=== PATIENT | male | born 1960 | race Caucasian/White ===

== ENCOUNTER 2017-11-07 10:17 | Day surgery (SDC) | payer OTHER ==
[~2017-11-07 10:17] MED LIST: Lactated Ringers 1,000 ML IV SCH
[2017-11-07] MEDS ORDERED: Propofol 200 MG/20 ML SDV ONE ×2 (10:55→12:18)
[2017-11-07] MEDS ORDERED: fentaNYL 100 MCG/2 ML SDV ONE ×2 (10:55→12:04)
[2017-11-07] MEDS ORDERED: Lidocaine 2% 5 ML SDV ONE (10:55)
[2017-11-07] MEDS ORDERED: Midazolam 1 MG/ML 2 ML SDV ONE (10:55)
--- NOTE | 2017-11-07 11:22 | PCM.PREANE ---
Preanesthetic Assessment - Anesthesia/Transfusion/Family Hx Anesthesia History: Prior Anesthesia Without Reaction Other Type of Anesthesia Reaction Comment: Denies any known problem in past Family History of Anesthesia Reaction: No Transfusion History: No Prior Transfusion(s) - Review of Systems General: No Symptoms Pulmonary: No Symptoms Cardiovascular: No Symptoms Gastrointestinal: No Symptoms Neurological: No Symptoms Other: Reports: None - Physical Assessment NPO Status Date: 11/06/17 O2 Sat by Pulse Oximetry: 95 Respiratory Rate: 16 Vital Signs: Last Vital Signs Temp 36.7 C 11/07/17 10:31 Pulse 64 11/07/17 10:31 Resp 16 11/07/17 10:31 BP 141/83 H 11/07/17 10:31 Pulse Ox 95 11/07/17 10:31 Height: 1.83 m Weight: 115.212 kg ASA Class: 2 Mental Status: Alert & Oriented x3 Airway Class: Mallampati = 1 Dentition: Reports: Normal Dentition ROM/Head Extension: Full Lungs: Clear to Auscultation, Normal Respiratory Effort Cardiovascular: Regular Rate, Regular Rhythm - Allergies Allergies/Adverse Reactions: Allergies Allergy/AdvReac Type Severity Reaction Status Date / Time soy Allergy Itching Verified 11/05/17 08:52 Promethazine with Codeine Allergy throat Uncoded 11/05/17 08:52 Swelling - Anesthesia Plan Pre-Op Medication Ordered: None (dx of RLS is inactive, hx of a fib sas a single episode in 1999, no recurrances, off anticoagulants, Hx of MYRA is inactive, does snore at night but last sleep study was negative per patient.) - Acknowledgements Anesthesia Type Planned: MAC Pt an Appropriate Candidate for the Planned Anesthesia: Yes Alternatives and Risks of Anesthesia Discussed w Pt/Guardian: Yes Pt/Guardian Understands and Agrees with Anesthesia Plan: Yes PreAnesthesia Questionnaire HEENT History: Reports: None Cardiovascular History: Reports: High Cholesterol, Hypertension Other Cardiovascular History: angiogram in the past, "small blockage" 2006 "to small to stent" Respiratory History: Reports: None Gastrointestinal History: Reports: Colon Polyp, GERD Genitourinary History: Reports: BPH Musculoskeletal History: Reports: Back Pain, Chronic Other Musculoskeletal History: hx: Fracturing hand Neurological History: Reports: Other (See Below) Other Neuro History: Restless legs Psychiatric History: Reports: Anxiety Endocrine/Metabolic History: Reports: Obesity/BMI 30+ Dermatologic History: Reports: None - Past Surgical History Head Surgeries/Procedures: Reports: None GI Surgical History: Reports: Cholecystectomy, Colonoscopy, EGD Other GI Surgeries/Procedures: Lap Britt, EGD & Colonoscopies x 2 in past Neurological Surgical History: Reports: Spinal Fusion Other Neurological Surgeries/Procedures: Lumbar fusion with 2 titanium clips Musculoskeletal Surgical History: Reports: Other (See Below) Other Musculoskeletal Surgeries/Procedures:: Low back surgery Lumbar fusion with 2 titanium clips - SUBSTANCE USE Smoking Status *Q: Never Smoker Second Hand Smoke Exposure: No Days Per Week of Alcohol Use: 0 Recreational Drug Use History: No - HOME MEDS Home Medications: Home Meds Aspirin [Arnaldo Chewable Aspirin] 81 mg PO DAILY 12/14/14 [History] Lovastatin 20 mg PO DAILY 12/14/14 [History] Sertraline HCl [Zoloft] 150 mg PO DAILY 12/14/14 [History] oxyCODONE HCl/Acetaminophen [Percocet 5-325 mg Tablet] 1 tab PO ASDIRECTED PRN 12/14/14 [History] Atenolol 25 mg PO BID 06/08/15 [History] Esomeprazole [NexIUM] 1 tab PO ASDIRECTED PRN 11/05/17 [History] Lisinopril 10 mg PO DAILY 11/05/17 [History] - CURRENT (IN HOUSE) MEDS Current Meds: Current Medications Lactated Ringer's (Ringers, Lactated) 1,000 mls @ 125 mls/hr IV ASDIRECTED SHANNON Last Admin: 11/07/17 10:32 Dose: 125 mls/hr Discontinued Medications Fentanyl (Sublimaze) Confirm Administered Dose 100 mcg .ROUTE .STK-MED ONE Stop: 11/07/17 10:56 Lidocaine (Xylocaine-Mpf 2%) Confirm Administered Dose 5 ml .ROUTE .STK-MED ONE Stop: 11/07/17 10:56 Midazolam HCl (Versed 1 Mg/Ml) Confirm Administered Dose 2 mg .ROUTE .STK-MED ONE Stop: 11/07/17 10:56 Propofol (Diprivan 20 Ml) Confirm Administered Dose 400 mg .ROUTE .STK-MED ONE Stop: 11/07/17 10:56
[2017-11-07] MEDS ORDERED: Ondansetron 4 MG Tab.DIS PO PRN (12:32)
--- NOTE | 2017-11-07 12:36 | PCM.OPNOTE ---
- General Post-Op/Procedure Note Date of Surgery/Procedure: 11/07/17 Operative Procedure(s): Esophagogastroduodenoscopy with biopsy. Colonoscopy. Pre Op Diagnosis: Progressive heartburn. Right upper quadrant pain. Personal history of colon polyps. Post-Op Diagnosis: Mild to moderate gastritis and esophagitis. No evidence of colonic neoplasia. Anesthesia Technique: MAC (ASA II) Primary Surgeon: Lee Augustine Tipple Oiler: Joseph Rollins Condition: Good Free Text/Narrative:: DICTATION [id number] CPT CODE [id number]
[2017-11-07] MEDS ORDERED: Lactated Ringers 1,000 ML IV SCH (12:45)
--- NOTE | 2017-11-07 12:56 | PCM.POSTAN ---
POST ANESTHESIA ASSESSMENT - MENTAL STATUS Mental Status: Alert, Oriented - RESPIRATORY Respiratory Status: Respiratory Rate WNL, Airway Patent - CARDIOVASCULAR CV Status: Pulse Rate WNL, Blood Pressure Stable - GASTROINTESTINAL GI Status: No Symptoms - POST OP HYDRATION Hydration Status: Adequate & Stable
--- NOTE | 2017-11-07 12:57 | PCM48HPAN ---
Post Anesthesia Note - EVALUATION WITHIN 48HRS OF ANESTHETIC Vital Signs in Normal Range: Yes Patient Participated in Evaluation: Yes Respiratory Function Stable: Yes Airway Patent: Yes Cardiovascular Function Stable: Yes Hydration Status Stable: Yes Pain Control Satisfactory: Yes Nausea and Vomiting Control Satisfactory: Yes Mental Status Recovered: Yes Resp Rate: 1
[2017-11-07 13:18] VITALS: BP 142/77
--- NOTE | 2017-11-07 14:01 | OR ---
SURGEON: Lee Augustine M.D. DATE OF PROCEDURE: 11/07/2017 OPERATION PERFORMED: Esophagogastroduodenoscopy with biopsy. ENGINE ROOM HELPER: Dr. Rollins, PGY3 ANESTHESIA: MAC. ASA CLASSIFICATION: II. PREOPERATIVE DIAGNOSES: 1. Progressive heartburn. 2. Epigastric discomfort. POSTOPERATIVE DIAGNOSES: 1. Mild gastritis. 2. Esophagitis. DESCRIPTION OF PROCEDURE: The patient was taken to the endoscopy room and positioned on the endoscopy table in the left lateral decubitus position. Time-out was called for appropriate identification of the patient and procedure. Monitored anesthesia care was provided. The bite block was placed between the patient's teeth. The gastroscope was inserted through the bite block into the oropharynx and advanced without difficulty through the esophagus and stomach into the duodenum where examination was now carried out in a retrograde fashion. The duodenum showed mild inflammatory changes. No acute ulcerations were noted. The stomach does show [id number] gastritis. Antral biopsies were obtained to look for the presence of Helicobacter pylori. The gastroscope was then retroflexed to visualize the proximal stomach. No tumors or polyps were seen, and there were no acute ulcerations noted proximally. The scope was then withdrawn aspirating the stomach as the scope was withdrawn. Once we reached the GE junction, one could see changes worrisome for a Garrison esophagus or significant esophagitis. Separate biopsies of this area were obtained. The mid and proximal esophagus showed no acute ulcerations or erosions. The vocal cords were visualized as the scope was withdrawn and noted to move symmetrically. The patient tolerated this procedure well. Following colonoscopy, he was taken to recovery room in stable condition. LOBITO / FLOR /[id number]
--- NOTE | 2017-11-07 14:15 | OR ---
SURGEON: Lee Augustine M.D. DATE OF PROCEDURE: 11/07/2017 OPERATION PERFORMED: Colonoscopy. ANESTHESIA: MAC. ASA CLASSIFICATION: II. RN CONCURRENT REVIEW: Dr. Rollins, PGY3 PREOPERATIVE DIAGNOSIS: Personal history of colon polyps. POSTOPERATIVE DIAGNOSIS: No evidence of neoplasia. DESCRIPTION OF PROCEDURE: With the patient having completed esophagogastroduodenoscopy, he was now positioned and colonoscopy was begun. He was maintained in the left lateral decubitus position. The colonoscope was inserted into the rectum and advanced with minimal difficulty to the cecum where the colonoscope was retroflexed to visualize the ascending colon from below. The colonoscope was then straightened and slowly withdrawn. The cecum, ascending colon, hepatic flexure, transverse colon, splenic flexure, descending colon, sigmoid colon, and rectum were very well visualized. No tumors, polyps, diverticula, or angiodysplastic changes were noted anywhere throughout the lower gastrointestinal tract. Once the colonoscope was withdrawn to the rectum, it was retroflexed to visualize the anal orifice from above. No tumors, polyps, or acute hemorrhoidal changes were noted. The colonoscope was then straightened, the rectum aspirated, and the colonoscope removed. The patient tolerated the procedure well and was taken to recovery room in stable condition. LOBITO / FLOR /[id number]
== END 2017-11-07 13:34 | disposition home or self-care (01) ==
LOC: MW.SDS 10:17
PROVIDERS: ATTEND Surgery
DX: Z12.11 Encounter for screening for malignant neoplasm of colon (principal); K29.50 Unspecified chronic gastritis without bleeding; K20.9 Esophagitis, unspecified; F41.9 Anxiety disorder, unspecified; I25.10 Atherosclerotic heart disease of native coronary artery without angina pectoris; E78.5 Hyperlipidemia, unspecified; I10 Essential (primary) hypertension; E66.9 Obesity, unspecified; Z88.8 Allergy status to other drugs, medicaments and biological substances; Z91.018 Allergy to other foods; Z86.010 Personal history of colon polyps; Z68.30 Body mass index [BMI] 30.0-30.9, adult; Z79.82 Long term (current) use of aspirin; Z79.899 Other long term (current) drug therapy; Z72.0 Tobacco use
CPT/HCPCS: 43239; 45378; J2250; J3010; J7120; 00813; 88305; 88312; J2704

== ENCOUNTER 2018-01-13 11:07 | Day surgery (SDC) | payer OTHER ==
[~2018-01-13 11:07] MED LIST changes: +Betamethasone Acetate/Betamethasone Sod Phosphate 30 MG/5 ML MDV ONE; +Iopamidol 408 MG/ML 50 ML SDV ONE; -Lactated Ringers 1,000 ML IV SCH; +Lidocaine 2% 5 ML SDV ONE; +Ropivacaine 0.5% 5 MG/ML 30 ML SDV ONE
--- NOTE | 2018-01-13 16:50 | OR ---
SURGEON: Machelle Bernard D.O. DATE OF PROCEDURE: 01/13/2018 OR STAFF PRESENT: 1. Gabbie Wood RN. 2. Jose Hunter RN. 3. Chuck Clay RT. WOUND CLASSIFICATION: I. PREOPERATIVE DIAGNOSES: 1. Failed back surgery syndrome. 2. Chronic low back pain. 3. Right lower extremity radiculopathy. 4. Herniated disk, right L3-L4. POSTOPERATIVE DIAGNOSES: 1. Failed back surgery syndrome. 2. Chronic low back pain. 3. Right lower extremity radiculopathy. 4. Herniated disk, right L3-L4. PROCEDURES PERFORMED: 1. Right transforaminal epidural steroid injection at L4. 2. Fluoroscopic guidance for needle placement. 3. Local with oral Valium for sedation. SCREENING QUESTIONS: The patient answered "no" to all of the following questions: 1. Are you allergic to iodine, Betadine or latex? 2. Do you have a bleeding disorder? 3. Do you have any joint replacements, heart valve replacements, or a pacemaker? 4. Are you allergic to anti-inflammatories or blood thinners? 5. Do you have any current local or systemic infections? MEDICAL NECESSITY: This is a patient with a history of chronic low back pain and lower extremity radicular pain in the above dermatomal pattern that comes in for the above diagnostic and therapeutic procedure. Pertinent positives and negatives for this suspected disease process along with the diagnostic findings and testing are in the patient's history and physical exam. The most salient feature includes radicular pain in the above dermatomal pattern. The patient had failed attempts at conservative therapy including physical therapy, nonsteroidal anti- inflammatory drugs, and other medications. No contraindications to perform this procedure including medical, no bleeding disorders or infections, no psychological, no antisocial personality disorder or active addiction disorder. There are no work-related issues, and, in general, the patient does not have any history of multiple prior interventions, surgeries or nerve blocks which have failed to return the patient to function. The patient's other symptoms to be treated include numbness, paresthesia, dysesthesia or hypoesthesia referred into the left lower extremity or any weakness in the involved myotome. This procedure is being performed in accordance with national guidelines as written by the [employer] ([place]). DESCRIPTION OF PROCEDURE: The patient had the procedure thoroughly explained including risks, benefits and alternatives. Consent was signed in my clinic indicating understanding and willingness to proceed. The patient presented to [facility] where the patient was escorted to the dressing room to disrobe and change into a hospital gown. Preoperative vital signs were taken and stable. The patient reported that Valium was taken prior to the procedure. The patient was brought to the procedure room and placed in the prone position on the table. A pillow was placed under the abdomen in order to flatten the lumbar lordosis. The back was prepped with ChloraPrep and sterilely draped. All personnel in the operating room were dressed in appropriate attire including surgical scrubs, head and shoe covers. This was to ensure sterility while in the treatment room. During the time fluoroscopy was in use, all personnel in the operating room wore lead wei with thyroid collars. Sterile technique was used during the procedure. The fluoroscope was placed for the right L4 transforaminal epidural steroid injection. There was no sign of infection at the skin site for needle insertion. The skin was anesthetized with 2% lidocaine with a 27 gauge 1-1/2 inch needle. Then a 22 gauge 3-1/2 inch spinal needle, advanced to the right L4. Under direct fluoroscopic guidance needle position was verified in three views; AP, oblique and lateral, with 0.2 cubic centimeters increments of Isovue- 200 dye. No intravascular flow pattern was observed under live fluoroscopy. Then 12 milligrams of Celestone was slowly injected after negative aspiration of heme, cerebrospinal fluid and no paresthesias were noted. The needle was cleared prior to removal from the skin. No adverse reactions were noted. The patient was brought to the recovery room awake and in good condition by my staff. The patient was monitored and discharge instructions were given after a brief stay in the recovery area. Both oral and written discharge and follow up instructions were given. The patient will follow up in the clinic in 3-4 weeks post procedure to evaluate the efficacy. The patient verbalized understanding including understanding of those signs and symptoms that would require emergency care and knows how to contact the office if there are any problems or questions in the meantime. PREOPERATIVE PAIN: 6/10. POSTOPERATIVE PAIN: 5/10. FOLLOWUP: Follow up in the Pain Clinic in 3 weeks. PARAMJIT / FLOR /[id number]
== END 2018-01-13 13:30 | disposition home or self-care (01) ==
LOC: MW.SDS 11:07
PROVIDERS: ATTEND Anesthesiology
DX: M96.1 Postlaminectomy syndrome, not elsewhere classified (principal); M51.16 Intervertebral disc disorders with radiculopathy, lumbar region; M47.26 Other spondylosis with radiculopathy, lumbar region; F41.9 Anxiety disorder, unspecified; K21.9 Gastro-esophageal reflux disease without esophagitis; K29.50 Unspecified chronic gastritis without bleeding; I25.10 Atherosclerotic heart disease of native coronary artery without angina pectoris; E78.5 Hyperlipidemia, unspecified; I10 Essential (primary) hypertension; G25.81 Restless legs syndrome; E66.9 Obesity, unspecified; Z68.34 Body mass index [BMI] 34.0-34.9, adult; Z88.8 Allergy status to other drugs, medicaments and biological substances; Z91.018 Allergy to other foods; Z79.82 Long term (current) use of aspirin; Z79.899 Other long term (current) drug therapy
CPT/HCPCS: 62323; J0702; J2795; Q9966

== ENCOUNTER 2023-01-17 08:04 | Day surgery (SDC) | payer BC ==
[~2023-01-17 08:04] MED LIST changes: -Betamethasone Acetate/Betamethasone Sod Phosphate 30 MG/5 ML MDV ONE; -Iopamidol 408 MG/ML 50 ML SDV ONE; +Lactated Ringers 1,000 ML IV SCH; -Lidocaine 2% 5 ML SDV ONE; +Propofol 200 MG/20 ML SDV ONE; -Ropivacaine 0.5% 5 MG/ML 30 ML SDV ONE
[2023-01-17] MEDS ORDERED: Propofol 200 MG/20 ML SDV ONE (09:53)
[2023-01-17] MEDS ORDERED: Lactated Ringers 1,000 ML IV SCH (10:15)
[2023-01-17] MEDS ORDERED: Water For Injection, Sterile 20 ML ONE (12:36)
[2023-01-17] MEDS ORDERED: Dexmedetomidine 200 MCG/2 ML SDV ONE (12:36)
[2023-01-17 13:34] VITALS: BP 133/63; PULSE 58
== END 2023-01-17 11:00 | disposition home or self-care (01) ==
LOC: MW.SDS 08:04
PROVIDERS: ATTEND Surgery
DX: Z12.11 Encounter for screening for malignant neoplasm of colon (principal); K29.50 Unspecified chronic gastritis without bleeding; K31.A0 Gastric intestinal metaplasia, unspecified; K21.00 Gastro-esophageal reflux disease with esophagitis, without bleeding; K29.00 Acute gastritis without bleeding; F41.9 Anxiety disorder, unspecified; E78.5 Hyperlipidemia, unspecified; I10 Essential (primary) hypertension; G25.81 Restless legs syndrome; M54.9 Dorsalgia, unspecified; G89.29 Other chronic pain; E78.00 Pure hypercholesterolemia, unspecified; Z86.010 Personal history of colon polyps; Z95.1 Presence of aortocoronary bypass graft; Z88.8 Allergy status to other drugs, medicaments and biological substances; Z79.82 Long term (current) use of aspirin; Z79.899 Other long term (current) drug therapy; Z90.49 Acquired absence of other specified parts of digestive tract
CPT/HCPCS: 43239; 45378; J2704; J7120; J3490

== ENCOUNTER 2023-05-02 13:28 | Emergency (ER) | payer BC ==
[2023-05-02] MEDS ORDERED: Ketorolac 30 MG/ML SDV IVPUSH ONE (14:14)
[2023-05-02] MEDS ORDERED: Sodium Chloride 0.9% 2.5 ML Syringe FLUSH PRN (14:14)
[2023-05-02] MEDS ORDERED: Lidocaine 4% 1 each Patch TOP ONE (14:14)
[2023-05-02] MEDS ORDERED: Acetaminophen/oxyCODONE 325-10 MG Tab PO ONE (14:14)
[2023-05-02] MEDS ORDERED: Sodium Chloride 0.9% 10 ML Syringe FLUSH PRN (14:14)
[2023-05-02 14:24] LABS: BASOPHILS PERCENT AUTO 0.4 % (0.0-1.5); EOSINOPHILS ABSOLUTE AUTO 0.2 K/uL (0.0-0.7); EOSINOPHILS PERCENT AUTO 3.1 % (0.0-7.0); HEMATOCRIT 41.1 % (38.0-50.0); HEMOGLOBIN 13.7 g/dL (13.0-17.0); LYMPHOCYTES ABSOLUTE AUTO 1.3 K/uL (0.6-2.4); LYMPHOCYTES PERCENT AUTO 24.7 % (16.0-40.0); MEAN CORPUSCULAR HEMOGLOBIN 28.2 pg (27.0-32.0); MEAN CORPUSCULAR HGB CONC 33.3 g/dL (31.0-37.0); MEAN CORPUSCULAR VOLUME 84.7 fL (80.0-98.0); MONOCYTES ABSOLUTE AUTO 0.6 K/uL (0.0-0.8); MONOCYTES PERCENT AUTO 10.9 % (0.0-15.0); NEUTROPHILS ABSOLUTE AUTO 3.2 K/uL (1.4-5.7); NEUTROPHILS PERCENT AUTO 60.9 % (48.0-80.0); NRBC ABSOLUTE 0 K/uL; PLATELET COUNT,PLT 251 K/uL (150-400); RED BLOOD CELL COUNT 4.85 M/uL (4.50-5.90); WHITE BLOOD CELL COUNT,WBC 5.23 K/uL (4.0-11.0)
[2023-05-02 14:37] LABS: A/G RATIO 1.1 (0.9-1.6); ALBUMIN 3.6 g/dL (3.4-5.0); BILIRUBIN TOTAL 0.3 mg/dL (0.2-1.0); CALCIUM 8.5 mg/dL (8.5-10.1); CARBON DIOXIDE,CO2 28.8 mmol/L (21.0-32.0); CREATININE 1.2 mg/dL (0.8-1.3); EST CRCL DRUG DOSING (CG) 55.38 mL/min; PROTEIN TOTAL,TP 6.8 g/dL (6.4-8.2)
[2023-05-02] MEDS ORDERED: Methocarbamol 750 MG TAB PO STA (15:14)
[2023-05-02 16:53] VITALS: BP 115/95; PULSE 61
== END 2023-05-02 16:52 | disposition home or self-care (01) ==
LOC: MW.ED 13:28
DX: I25.10 Atherosclerotic heart disease of native coronary artery without angina pectoris (principal); M25.512 Pain in left shoulder; I10 Essential (primary) hypertension; E78.00 Pure hypercholesterolemia, unspecified; K21.9 Gastro-esophageal reflux disease without esophagitis; E66.9 Obesity, unspecified; Z68.37 Body mass index [BMI] 37.0-37.9, adult; Z79.01 Long term (current) use of anticoagulants; Z88.8 Allergy status to other drugs, medicaments and biological substances; Z79.82 Long term (current) use of aspirin; Z79.899 Other long term (current) drug therapy; Z79.02 Long term (current) use of antithrombotics/antiplatelets
CPT/HCPCS: 36415; 71046; 73030; 80053; 84484; 85025; 93005; 96374; 99285; A9270; J1885; J3490; 93010; 99284

== ENCOUNTER 2024-07-16 13:47 | Emergency (ER) | payer BC, OTHER ==
[2024-07-16 14:06] LABS: BASOPHILS ABSOLUTE AUTO 0.02 K/uL (0.00-0.20); BASOPHILS PERCENT AUTO 0.4 % (0.0-1.0); EOSINOPHILS ABSOLUTE AUTO 0.12 K/uL (0.00-0.45); EOSINOPHILS PERCENT AUTO 2.6 % (0.0-6.0); HEMATOCRIT 38.2 % (42.0-52.0); HEMOGLOBIN 12.9 g/dL (14.0-18.0); IMMATURE GRAN ABSOLUTE AUTO 0.03 K/uL (0.00-0.05); IMMATURE GRAN PERCENT AUTO 0.6 % (0.0-0.4); LYMPHOCYTES ABSOLUTE AUTO 1.26 K/uL (1.00-4.80); LYMPHOCYTES PERCENT AUTO 27.1 % (24.0-44.0); MEAN CORPUSCULAR HEMOGLOBIN 28.1 pg (28.0-32.0); MEAN CORPUSCULAR HGB CONC 33.8 g/dL (32.0-36.0); MEAN CORPUSCULAR VOLUME 83.2 fL (83.0-99.0); MEAN PLATELET VOLUME 10.6 fL (9.4-12.4); MONOCYTES PERCENT AUTO 8.6 % (0.0-8.0); NEUTROPHILS ABSOLUTE AUTO 2.82 K/uL (1.80-7.70); NEUTROPHILS PERCENT AUTO 60.7 % (41.0-71.0); PLATELET COUNT,PLT 234 K/uL (150-400); RED BLOOD CELL COUNT 4.59 M/uL (4.52-5.90); WHITE BLOOD CELL COUNT,WBC 4.65 K/uL (3.9-11.3)
[2024-07-16 14:14] LABS: INR 1.01 (0.86-1.11); PTT,PARTIAL THROMBOPLSTIN TIME 26.2 SEC (23.9-30.7)
[2024-07-16] MEDS: Iopamidol 755 MG/ML 500 ML Multipack Bottle IVPUSH STA (14:20)
[2024-07-16 14:37] LABS: A/G RATIO 1.3 (0.9-1.6); ALBUMIN 3.8 g/dL (3.4-5.0); BILIRUBIN TOTAL 0.3 mg/dL (0.2-1.0); CALCIUM 9.2 mg/dL (8.5-10.1); CARBON DIOXIDE,CO2 30.7 mmol/L (21.0-32.0); CREATININE 1.3 mg/dL (0.8-1.3); EST CRCL DRUG DOSING (CG) 59.53 mL/min; POTASSIUM,K 3.6 mmol/L (3.5-5.1); PROTEIN TOTAL,TP 6.8 g/dL (6.4-8.2)
[2024-07-16] MEDS: fentaNYL 50 MCG/ML SDV IVPUSH ONE (15:24)
[2024-07-16 16:12] VITALS: BP 154/98; PULSE 88
== END 2024-07-16 16:11 | disposition home or self-care (01) ==
LOC: MW.ED 13:47
DX: M25.552 Pain in left hip (principal); I10 Essential (primary) hypertension; E78.00 Pure hypercholesterolemia, unspecified; K21.9 Gastro-esophageal reflux disease without esophagitis; E66.9 Obesity, unspecified; Z68.33 Body mass index [BMI] 33.0-33.9, adult; Z90.49 Acquired absence of other specified parts of digestive tract; Z79.899 Other long term (current) drug therapy; Z79.891 Long term (current) use of opiate analgesic; Z79.82 Long term (current) use of aspirin; Z91.018 Allergy to other foods; Z88.8 Allergy status to other drugs, medicaments and biological substances; Z88.5 Allergy status to narcotic agent
CPT/HCPCS: 36415; 70450; 71260; 72125; 74177; 80053; 85025; 85610; 85730; 86850; 86900; 86901; 96374; 99285; J3010; Q9967; 72129; 72129-26; 72132-26; 99283